=== PATIENT | female | born 1990 | race African-American/Black ===

== ENCOUNTER 2019-06-07 18:15 | Emergency (ER) | payer BC ==
[~2019-06-07] VITALS: Ht 170.2 cm; Wt 86.2 kg
[2019-06-07 18:21] VITALS: BP 142/93; Ht 170.2 cm; Wt 86.2 kg
== END 2019-06-07 18:42 | disposition home or self-care (01) ==
LOC: ED 18:15
DX: Z48.01 Encounter for change or removal of surgical wound dressing (principal)